=== PATIENT | male | born 1945 ===

== ENCOUNTER → 2017-09-03 | Outpatient (REF) | payer MEDICARE ==
[2017-09-03 20:23] LABS: ERYTHROCYTE SEDIMENTATION RATE 10 mm/hr (0-20)
[2017-09-11 00:37] LABS: ANCA-ATYPICAL <1:20 titer (Neg:<1:20); ANTI DOUBLE STRAND-DNA AB <1 IU/mL (0-9); ANTINUCLEAR ANTIBODIES DIRECT Negative (Negative); CYTOPLASMIC NEUTROP AB ANCA-C <1:20 titer (Neg:<1:20); PERINUCLEAR AB ANCA-P <1:20 titer (Neg:<1:20); RNP ANTIBODIES <0.2 AI (0.0-0.9); SJOGREN'S ANTI SS-A <0.2 AI (0.0-0.9); SJOGREN'S ANTI SS-B <0.2 AI (0.0-0.9); SMITH ANTIBODIES <0.2 AI (0.0-0.9)
== END ==
LOC: M LAB REF 17:35
DX: R91.8 Other nonspecific abnormal finding of lung field (principal)
CPT/HCPCS: 86255